=== PATIENT | female | born 1995 | race Caucasian/White ===

== ENCOUNTER 2016-09-26 11:12 | Emergency (ER) | payer BC ==
[2016-09-26 11:38] VITALS: BP 118/93
[2016-09-26] MEDS ORDERED: predniSONE TAB* 20 MG PO ONE (12:22)
--- NOTE | 2016-09-26 12:23 | UC ---
Skin Complaint HPI - HPI Summary HPI Summary: 21 yo female noted 5 itch insect bites right upper calf yesteday now area red and swollen still very pruritic - History of Current Complaint Chief Complaint: UCSkin Time Seen by Provider: 09/26/16 12:10 Stated Complaint: REACTION TO INSECT BITE Hx Obtained From: Patient Hx Last Menstrual Period: 09/22/16 Onset/Duration: Sudden Onset, Lasting Hours Timing: Constant Onset Severity: Mild Current Severity: Moderate Pain Intensity: 3 Pain Scale Used: 0-10 Numeric Location: Discrete Character: Swelling, Pruritus, Pain, Redness Aggravating: Touch Associated Signs & Symptoms: Positive: Tenderness Related History: Insect Bite/Sting - Allergy/Home Medications Allergies/Adverse Reactions: Allergies Allergy/AdvReac Type Severity Reaction Status Date / Time No Known Allergies Allergy Verified 09/26/16 11:38 Home Medications: Home Medications Diphenhydramine HCl [Benadryl Allergy 25 MG CAP] 50 mg PO ONCE PRN 09/26/16 [ History Confirmed 09/26/16] O C 1 tab PO QAM 09/26/16 [History Confirmed 09/26/16] Review of Systems Constitutional: Negative Skin: Rash Eyes: Negative ENT: Negative Respiratory: Negative Cardiovascular: Negative Gastrointestinal: Negative Genitourinary: Negative Motor: Negative Neurovascular: Negative Musculoskeletal: Negative Neurological: Negative Psychological: Negative All Other Systems Reviewed And Are Negative: Yes PMH/Surg Hx/FS Hx/Imm Hx Previously Healthy: Yes - Surgical History Surgical History: None - Family History Known Family History: Positive: Hypertension - Social History Alcohol Use: Occasionally Substance Use Type: Marijuana Substance Use Comment - Amount & Last Used: 09/24/16 Smoking Status (MU): Light Every Day Tobacco Smoker Physical Exam Triage Information Reviewed: Yes Appearance: Well-Appearing, No Pain Distress, Well-Nourished Vital Signs: Initial Vital Signs Temp 98.9 F 09/26/16 11:31 Pulse 77 09/26/16 11:31 Resp 18 09/26/16 11:31 BP 118/93 09/26/16 11:31 Pulse Ox 100 09/26/16 11:31 Vital Signs Reviewed: Yes Eyes: Positive: Conjunctiva Clear ENT: Positive: Hearing grossly normal. Negative: Nasal congestion, Nasal drainage, Trismus, Muffled/hoarse voice Neck: Positive: Supple, Nontender, No Lymphadenopathy Respiratory: Positive: Lungs clear, Normal breath sounds, No respiratory distress, No accessory muscle use Cardiovascular: Positive: RRR, No Murmur Abdomen Description: Positive: Nontender Bowel Sounds: Positive: Present Musculoskeletal: Positive: ROM Intact, No Edema Neurological: Positive: Alert Psychological Exam: Normal Skin Exam: Other - see image Course/Dx - Diagnoses Provider Diagnoses: local reaction to insect bites Discharge - Discharge Plan Condition: Stable Disposition: HOME Prescriptions: Prednisone 60 mg PO DAILY #6 tab Patient Education Materials: Insect Bite or Sting (ED) Additional Instructions: local reaction to insect bites cool compresses or ice recheck in 2 days if not improved benadryl if needed for itch Images Front/Back of Body, Lg ([place]): 1 - about 10x 12 cm of redness and warmth. initial 5 bites redder and noted. no abscess
== END 2016-09-26 12:49 | disposition home or self-care (01) ==
LOC: UCCORT 11:12
DX: S80.861A Insect bite (nonvenomous), right lower leg, initial encounter (principal); W57.XXXA Bitten or stung by nonvenomous insect and other nonvenomous arthropods, initial encounter; F17.200 Nicotine dependence, unspecified, uncomplicated
CPT/HCPCS: 99202; G0463; J7512

== ENCOUNTER 2018-08-14 17:04 | Emergency (ER) | payer BC ==
[2018-08-14 17:19] VITALS: BP 117/72
--- NOTE | 2018-08-14 17:35 | ED ---
Skin Complaint - HPI Summary HPI Summary: 23 yr old with rash to the left forearm dorsum. She wears a training watch in the area. She denies itching, blistering, drainage. She has been applying hydrocortisone cream to the area. No other complaints. - History of Current Complaint Chief Complaint: UCSkin Time Seen by Provider: 08/14/18 17:23 Stated Complaint: SKIN ISSUE Hx Last Menstrual Period: 07/27/18 Pain Intensity: 0 - Allergy/Home Medications Allergies/Adverse Reactions: Allergies Allergy/AdvReac Type Severity Reaction Status Date / Time No Known Allergies Allergy Verified 08/14/18 17:13 Home Medications: Home Medications Control Pill 1 tab PO DAILY 08/14/18 [History Confirmed 08/14/18] diPHENhydraMINE PO* [Benadryl PO 25 MG TAB*] 25 mg PO Q6H PRN 08/14/18 [History Confirmed 08/14/18] PMH/Surg Hx/FS Hx/Imm Hx Infectious Disease History: No Infectious Disease History: Reports: History Other Infectious Disease - mono Denies: Traveled Outside the [place] in Last 30 Days - Family History Known Family History: Positive: Hypertension - Social History Occupation: Employed Full-time Lives: With Family Alcohol Use: Occasionally Substance Use Type: Reports: Marijuana Substance Use Comment - Amount & Last Used: 1-2 times weekly Smoking Status (MU): Never Smoked Tobacco Review of Systems Constitutional: Negative Positive: Rash All Other Systems Reviewed And Are Negative: Yes Physical Exam Triage Information Reviewed: Yes Vital Signs On Initial Exam: Initial Vitals Temp Pulse Resp BP Pulse Ox 98.9 F 86 14 117/72 100 08/14/18 17:14 08/14/18 17:14 08/14/18 17:14 08/14/18 17:14 08/14/18 17:14 Vital Signs Reviewed: Yes Appearance: Positive: Well-Appearing, No Pain Distress Skin: Positive: Other - the left forearm dorsum is with some hyperpigmented, lichen areas that are no larger than 1 cm in diameter and 2-3 cm in length at most. No scaling, and no raised boarder. Area appears consistent with dermatitis. Head/Face: Positive: Normal Head/Face Inspection Eyes: Positive: EOMI, JOSÉ MIGUEL ENT: Positive: Normal ENT inspection Neck: Positive: Nontender Respiratory/Lung Sounds: Positive: Clear to Auscultation, Breath Sounds Present Cardiovascular: Positive: RRR. Negative: Murmur Abdomen Description: Negative: Distended Musculoskeletal: Positive: Strength/ROM Intact Neurological: Positive: Sensory/Motor Intact, Alert, Oriented to Person Place, Time, CN Intact II-III, Normal Gait, Speech Normal Psychiatric: Positive: Normal - Mimi Coma Scale Best Eye Response: 4 - Spontaneous Best Motor Response: 6 - Obeys Commands Best Verbal Response: 5 - Oriented Coma Scale Total: 15 Diagnostics - Vital Signs Vital Signs Temp Pulse Resp BP Pulse Ox 08/14/18 17:14 98.9 F 86 14 117/72 100 - Laboratory Lab Statement: Any lab studies that have been ordered have been reviewed, and results considered in the medical decision making process. Course/Dx - Course Course Of Treatment: 23 yr old with dermatitis to the left forearm dorsum. She will apply hydrocortisone ointment BID to the arm,and FU with primary care. - Diagnoses Provider Diagnoses: Contact dermatitis Discharge - Sign-Out/Discharge Documenting (check all that apply): Patient Departure All imaging exams completed and their final reports reviewed: No Studies - Discharge Plan Condition: Good Disposition: HOME Patient Education Materials: Contact Dermatitis (ED) Referrals: Non Staff,Doctor [Primary Care Provider] - [facility] [Outside] - 5 Days Additional Instructions: use hydrocortisone ointment to the area twice a day. - Billing Disposition and Condition Condition: GOOD Disposition: Home
== END 2018-08-14 17:46 | disposition home or self-care (01) ==
LOC: UCCORT 17:04
DX: L25.9 Unspecified contact dermatitis, unspecified cause (principal)
CPT/HCPCS: 99211; G0463